=== PATIENT | female | born 1985 | race Two or more races ===

== ENCOUNTER 2017-09-24 10:48 | Emergency (ER) | payer MEDICAID ==
[~2017-09-24] VITALS: Ht 157.5 cm; Wt 70.0 kg
[2017-09-24 11:12] VITALS: BP 130/83
[2017-09-24] MEDS ORDERED: AZITHROMYCIN 500 MG TABLET PO ONE ×2 (12:00→13:30)
[2017-09-24] MEDS ORDERED: CEFTRIAXONE 250 MG IM ONE ×2 (12:00→13:30)
[2017-09-24] MEDS ORDERED: AZITHROMYCIN 500 MG TABLET ONE (13:42)
[2017-09-24] MEDS ORDERED: CEFTRIAXONE 250 MG ONE (13:43)
== END 2017-09-24 15:25 | disposition home or self-care (01) ==
LOC: ED 15:19
DX: A56.01 Chlamydial cystitis and urethritis (principal); Z20.2 Contact with and (suspected) exposure to infections with a predominantly sexual mode of transmission
CPT/HCPCS: 87210; 87491; 87591; 87808; 96372; 99284; J0696

== ENCOUNTER 2019-10-12 19:44 | Emergency (ER) | payer MEDICAID, OTHER ==
[~2019-10-12] VITALS: Ht 157.5 cm; Wt 70.2 kg
[2019-10-12 19:47] VITALS: BP 135/61
--- NOTE | 2019-10-12 20:00 | NUR ---
PT REPORTS SEXUAL PARTNER HAS TESTED POSITIVE FOR CHLAMYDIA AND REQUESTS PROPHYLACTIC MEDICATIONS. PT DENIES ANY SYMPTOMS AT THIS TIME.
[2019-10-12] MEDS ORDERED: CEFTRIAXONE 250 MG ONE (20:16)
[2019-10-12] MEDS ORDERED: AZITHROMYCIN 250 MG TABLET ONE (20:17)
[2019-10-12] MEDS ORDERED: CEFTRIAXONE 250 MG IM ONE (20:30)
[2019-10-12] MEDS ORDERED: AZITHROMYCIN 500 MG TABLET PO ONE (20:30)
--- NOTE | 2019-10-12 20:30 | NUR ---
UA WALKED TO LAB.
== END 2019-10-12 20:50 ==
LOC: ED 20:44
DX: A56.8 Sexually transmitted chlamydial infection of other sites (principal)
CPT/HCPCS: 87491; 87591; 96372; 99283; J0696